=== PATIENT | male | born 1975 | race Caucasian/White ===

== ENCOUNTER 2017-04-15 06:59 | Day surgery (SDC) | payer OTHER ==
--- NOTE | 2017-04-12 13:16 | HISTORY & PHYSICAL EXAMINATION ---
DATE OF ADMISSION: 04/15/2017 CHIEF COMPLAINT: Left shoulder pain. HISTORY OF PRESENT ILLNESS: The patient is a 41-year-old male that presents to the office today with left shoulder pain, states that the symptoms have been acute and nontraumatic that began about 2-3 weeks ago. He describes the pain as aching, burning and stabbing and occurs constantly. The patient had a previous rotator cuff repair in 2012. The patient had an MRI done that demonstrated a full thickness retear of the supraspinatus. The patient would like to schedule a left shoulder arthroscopy with revision of rotator cuff repair. PAST MEDICAL HISTORY: Significant for hypercholesterolemia, sleep apnea, anxiety, shortness of breath walking up stairs, osteoarthritis. PAST SURGICAL HISTORY: Cholecystectomy, left rotator cuff repair, right knee meniscectomy. SOCIAL HISTORY: Denies smoking or tobacco use. Denies IV or illegal drug use. He lives in a 2-story house. He is currently on disability. FAMILY HISTORY: Mom and dad had a history of heart attack. ALLERGIES: SIMVASTATIN. His allergy is rhabdomyolysis. MEDICATIONS: Vitamin B12 once a day, magnesium 200 mg 2 tablets once a day, vitamin C 500 mg once a day, melatonin 5 mg 1 tablet at bedtime, amitriptyline 50 mg 1 capsule once a day, Neurontin 600 mg 1 tablet 3 times a day, fluticasone, cyclobenzaprine 10 mg 1 tablet 2 times a day, rosuvastatin 10 mg 1 tablet once a day, multivitamin, fish oil twice a day. REVIEW OF SYSTEMS: She denies headaches, fevers, chills, double vision, blurry vision, sore throat, cough, chest pain, nausea, vomiting, diarrhea, constipation, numbness, tingling, tired, urinary difficulties, thoughts to harm himself or harm others or depression. He is positive for joint pain and joint stiffness of the left shoulder. OBJECTIVE: GENERAL APPEARANCE: The patient is a 41-year-old male who is sitting in no acute distress. He is well dressed, well nourished. He is awake, alert and oriented x3. VITAL SIGNS: He is 5 feet 10 inches tall, 380 pounds, blood pressure 144/84. HEAD, EYES, EARS, NOSE, AND THROAT: Normocephalic, atraumatic. Extraocular movements are intact. PERRLA. Mucosa was moist. No septal deviation. NECK: Supple, no lymphadenopathy, no JVD, no thyromegaly. HEART: Regular rate and rhythm. No murmurs or gallops. LUNGS: Clear to auscultation. No wheezing or rhonchi. ABDOMEN: Soft, nontender, nondistended. Normal bowel sounds, no hepatosplenomegaly. EXTREMITIES: Paying particular attention to the left upper extremity, he is able to actively flex to 90 degrees, abduct to 90 degrees, externally rotate to 50 degrees. He has a positive empty can test. He has diffuse strength of the left shoulder. IMAGING: MRI of the left shoulder demonstrated a full thickness retear of the supraspinatus which is retracted 2.3 cm. IMPRESSION: Left shoulder rotator cuff retear. PLAN: The patient is scheduled for a left shoulder arthroscopy with revision of rotator cuff repair. The patient has tried nonsteroidal anti-inflammatories with minimal relief. MRI demonstrated a retear of the supraspinatus. The patient would like to proceed with a left shoulder arthroscopy with revision of rotator cuff repair. Risks and benefits to surgery were discussed and included but not limited to infection, DVT, pain, stiffness, need for revision surgery, failure to relieve all symptoms, retear, damage to blood vessels, damage to nerves, and risks of anesthesia were all discussed with the patient and he wishes to proceed. All questions were answered to his satisfaction. No DVT prophylaxis needed. He will be discharged home with self-care. DENNIS
--- NOTE | 2017-04-12 14:32 | PAT Medication Instructions ---
Service Date Apr 12, 2017. Current Home Medication List Ascorbic Acid (Ascorbic Acid), 500 MG PO QAM Cholecalciferol (D3), 5,000 INT-UNIT PO QAM Cyanocobalamin (Vitamin B-12), 1,000 MCG PO QAM Cyclobenzaprine Hcl (Flexeril), 10 MG PO BID Fish Oil ([place]-3), 1 CAP PO BID Fluticasone Propionate (Nasal) (Flonase Allergy Relief), 2 SPRAYS SHAHRIAR QAM Gabapentin (Neurontin), 600 MG PO TID Magnesium Oxide (Mg Supplement (Magox 400), 1 TABLET PO QAM Melatonin (Melatonin Maximum Strengt), 1 TAB PO HS Multiple Vitamin (Multivitamin), 1 TAB PO QAM Nortriptyline (Pamelor), 50 MG PO HS Rosuvastatin Calcium (Crestor), 10 MG PO HS Venlafaxine Hcl (Effexor), 2 TABLETS PO BID Medication Instructions For Your Scheduled Surgery - Hold the following medications as of 04/12/17: Fish Oil ([place]-3), 1 CAP PO BID - Hold the following medications the morning of surgery: Multiple Vitamin (Multivitamin), 1 TAB PO QAM Ascorbic Acid (Ascorbic Acid), 500 MG PO QAM Cholecalciferol (D3), 5,000 INT-UNIT PO QAM Cyanocobalamin (Vitamin B-12), 1,000 MCG PO QAM Magnesium Oxide (Mg Supplement (Magox 400), 1 TABLET PO QAM Cyclobenzaprine Hcl (Flexeril), 10 MG PO BID - Take the following medications the morning of surgery with a sip of water OTHERWISE NOTHING TO EAT OR DRINK AFTER MIDNIGHT: Gabapentin (Neurontin), 600 MG PO TID Venlafaxine Hcl (Effexor), 2 TABLETS PO BID Fluticasone Propionate (Nasal) (Flonase Allergy Relief), 2 SPRAYS SHAHRIAR QAM - Take the following medications as scheduled the night before surgery: Melatonin (Melatonin Maximum Strengt), 1 TAB PO HS Nortriptyline (Pamelor), 50 MG PO HS Rosuvastatin Calcium (Crestor), 10 MG PO HS Gabapentin (Neurontin), 600 MG PO TID Venlafaxine Hcl (Effexor), 2 TABLETS PO BID Cyclobenzaprine Hcl (Flexeril), 10 MG PO BID If you have any questions please call us at [phone] or [phone] or [phone]
--- NOTE | 2017-04-12 15:31 | DIAGNOSTIC IMAGING REPORT ---
CHEST 2 VIEWS ROUTINE CLINICAL HISTORY: Preoperative chest COMPARISON STUDY: 09/13/2013 FINDINGS: The heart is mildly enlarged. There is no failure. There is no focal pulmonary consolidation. There are no pleural effusions.[ IMPRESSION: No active disease in the chest. Electronically signed by: Leon Mayberry M.D. 04/12/2017 3:30 PM Dictated Date/Time: 04/12/2017 3:29 PM
[2017-04-12 15:35] LABS: BASO % 0.4 %; BASO ABS # 0.03 K/uL (0-0.2); COMPLETE YES; EOS % 1.9 %; HEMATOCRIT 41.4 % (42-52); IG% 0.2 %; LYMPH % 27.4 %; LYMPH ABS # 2.32 K/uL (1.2-3.4); MEAN CELL VOLUME 82.6 fL (80-100); MEAN CORPUSCULAR HEMOGLOBIN 28.7 pg (25-34); MEAN CORPUSCULAR HGB CONC 34.8 g/dl (32-36); MEAN PLATELET VOLUME 10.2 fL (7.4-10.4); MONO % 4.3 %; NEUT % 65.8 %; PLATELET COUNT 232 K/uL (130-400); RED BLOOD COUNT 5.01 M/uL (4.7-6.1); WHITE BLOOD COUNT 8.47 K/uL (4.8-10.8)
[2017-04-12 15:35] LABS: URINE APPEARANCE CLEAR (CLEAR); URINE BILIRUBIN NEG (NEG); URINE COLOR YELLOW; URINE NITRITE NEG (NEG); URINE PH 5.5 (4.5-7.5); URINE SPECIFIC GRAVITY 1.033 (1.000-1.030); UROBILINOGEN NEG (NEG)
[2017-04-12 15:38] LABS: MANUAL MICROSCOPIC REQUIRED? NO; REVIEW REQ? NO
[2017-04-12 15:54] LABS: PARTIAL THROMBOPLASTIN RATIO 1.1; PROTHROMBIN TIME (PATIENT) 10.4 SECONDS (9.0-12.0)
[2017-04-12 16:20] LABS: BLOOD UREA NITROGEN 16 mg/dl (7-18); BUN/CREATININE RATIO 14.2 (10-20); CALCIUM 8.9 mg/dl (8.5-10.1); CARBON DIOXIDE 28 mmol/L (21-32); CHLORIDE 109 mmol/L (98-107); GLUCOSE 186 mg/dl (70-99); POTASSIUM 4.4 mmol/L (3.5-5.1); SODIUM 144 mmol/L (136-145)
[2017-04-13 09:50] VITALS: Ht 177.8 cm; Wt 180.0 kg
[~2017-04-15] VITALS: Ht 177.8 cm; Wt 180.0 kg
[~2017-04-15 06:59] MED LIST: ASCO500T16 PO; CEFAZOLIN 3000 MG/65 ML D5W IV SCH; CHOL1TAB18 PO; CRS/10 PO; CYAN10005 PO; CYCL10TA6 PO; FLUT0.15 NAE; GABA-113 PO; LACTATED RINGER'S 1000ML 1,000 ML IV SCH; MAGN10TA PO; MELATAB2 PO; MULTTAB58 PO; NORT50CA PO; OMEG10007 PO; VENL75TA4 PO
--- NOTE | 2017-04-15 07:15 | History & Physical Bridge Note ---
H&P Re-Evaluation Bridge Note: I have examined the patient, reviewed the History & Physical and in the interval since the performance of the History & Physical I have noted the following changes of clinical significance: No changes noted
[2017-04-15] MEDS ORDERED: FENTANYL CITRATE INJ 50 MCG/1 ML 2 ML VIAL IV PRN (07:30)
[2017-04-15] MEDS ORDERED: ONDANSETRON INJ 2 MG/ML 2 ML VIAL IV PRN ×2 (07:30→11:45)
[2017-04-15] MEDS ORDERED: EpHEDrine SULFATE INJ 50 MG/ML AMP IV PRN (07:30)
[2017-04-15] MEDS ORDERED: ATROPINE SULFATE 0.1 MG/ML 5ML SYR IV PRN (07:30)
[2017-04-15] MEDS ORDERED: HYDROmorphone INJ 1 MG/ML SYR IV PRN (07:30)
[2017-04-15] MEDS ORDERED: PROMETHAZINE HCL INJ 12.5 MG in SODIUM CHLORIDE 0.9% 50ML 50 ML IV PRN (07:30)
[2017-04-15] MEDS ORDERED: ROPIVACAINE 0.5% 5 MG/ML 30 ML VIAL ONE (07:36)
[2017-04-15] MEDS ORDERED: MIDAZOLAM HCL 1 MG/ML 2ML VIAL ONE (07:54)
[2017-04-15] MEDS ORDERED: FENTANYL CITRATE INJ 50 MCG/1 ML 2 ML VIAL ONE (07:54)
[2017-04-15 08:14] VITALS: BP 152/84; PULSE 83; TEMP 36.7; O2SAT 96
[2017-04-15] MEDS ORDERED: BUPIVACAINE 0.5 % 5 MG/1 ML MPF 30ML VIAL ONE (08:56)
[2017-04-15] MEDS ORDERED: LIDOCAINE/EPINEPHRINE 1% 20 ML VIAL ONE (08:56)
[2017-04-15] MEDS ORDERED: EpINEphrine HCL INJ 1 MG/ML 5ML SYRINGE ONE (08:56)
[2017-04-15] MEDS ORDERED: LIDOCAINE HCL 2% 2 ML VIAL (20MG/ML) ONE (10:36)
[2017-04-15] MEDS ORDERED: ONDANSETRON INJ 2 MG/ML 2 ML VIAL ONE (10:36)
[2017-04-15] MEDS ORDERED: ROCURONIUM BROMIDE 10 MG/ML 5 ML VIAL ONE (10:36)
[2017-04-15] MEDS ORDERED: NEOSTIGMINE METHYLSULFATE 5 MG/5 ML SYR ONE (10:36)
[2017-04-15] MEDS ORDERED: PROPOFOL IV EMULSION 10 MG/ML 20 ML VIAL IV ONE (10:36)
[2017-04-15] MEDS ORDERED: GLYCOPYRROLATE INJ 0.2 MG/ML VIAL ONE (10:36)
[2017-04-15] MEDS ORDERED: ALBUTEROL HFA INHALER 8.5 GM INH ONE (11:44)
[2017-04-15] MEDS ORDERED: OXYC-57 PO (11:45)
[2017-04-15] MEDS ORDERED: ACETAMINOPHEN 325 MG TAB PO PRN (11:45)
[2017-04-15] MEDS ORDERED: OXYCODONE/ACETAMINOPHEN 5-325 TAB PO PRN ×2 (11:45)
--- NOTE | 2017-04-15 11:48 | Discharge Instructions ---
Discharge Instructions Date of Service Apr 15, 2017. Admission Reason for Admission: Left Shoulder Rotator Cuff Tear Discharge Discharge Diagnosis / Problem: S/P Left shoulder revision Rotator cuff repair Discharge Goals Goal(s): Decrease discomfort, Improve function Activity Recommendations Activity Limitations: per Instructions/Follow-up section . Instructions / Follow-Up Instructions / Follow-Up U DISCHARGE INSTRUCTIONS: ROTATOR CUFF REPAIR SELF CARE INSTRUCTIONS A. You are permitted to loosen your sling/immobilizer to move your elbow, wrist , and hand to prevent stiffness. You should use your well arm (good arm) to assist the operated extremity when trying to raise the arm away from the body, hygiene purposes. Do NOT actively try to use/engage your shoulder muscles in operative arm at this time. You should NOT do overhead activity, lifting, or attempt to reach behind your back. B. NO PHYSICAL THERAPY FOR 6 WEEKS. C. At 48 hours post-operatively, you may change your dressing. (Leave white steri-strips intact if present). Use band-aids and change daily. You are allowed to shower at this time and get the incision area wet, but DO NOT soak or submerge incision area in water. (No baths, swimming pools, hot tubs) D. Do NOT apply soap or any ointment/lotions directly over incision. E. You may use ice as needed to operative shoulder SPECIAL CARE INSTRUCTIONS: VERY IMPORTANT TO READ AND REVIEW A. There are a few signs you need to watch for after you are home. Call [facility] at [phone] if you experience any of the following: a. Increased severe shoulder pain. Some pain is expected especially when you exercise b. Increased swelling in your shoulder or arm; pain or swelling in either upper extremity. (Note: swelling and stiffness is normal and expected for several weeks post op, depending on type of shoulder surgery you had). c. Any fluid or drainage from the incision; redness of the incision. d. Shortness of breath or chest pain. B. Please call [facility] at [phone] if you have any questions or concerns about your operation or recovery. C. Call your physician if: a. Temperature is greater than 101 degrees (F). b. Pain is not relieved by prescribed pain medications. c. Increase drainage or redness from incision. d. Unanswered questions or concerns. D. Pain Medication: a. You will be prescribed pain medication upon discharge that should last till your first post-operative appointment. b. If you experience nausea and/or skin rash, discontinue this medication and contact our office for an alternative medication. c. Caution- narcotic pain medication can cause constipation. FOLLOW UP VISIT: Please call [facility] at [phone] to schedule a follow up appointment 10-14 days from your surgery date. Current Hospital Diet Patient's current hospital diet: Regular Diet Discharge Diet Recommended Diet: Regular Diet Procedures Procedures Performed: Left Shoulder Arthroscopy Revision Rotator Cuff Repair Pending Studies Studies pending at discharge: no Medical Emergencies . Who to Call and When: Medical Emergencies: If at any time you feel your situation is an emergency, please call 911 immediately. . Non-Emergent Contact Non-Emergency issues call your: Surgeon Call Non-Emergent contact if: temperature is above 101, your pain is worsening , wound has increased drainage, wound has increased redness . "Provider Documentation" section prepared by Servando Short. . VTE Core Measure Inpt VTE Proph given/why not?: Treatment not indicated [place] Drug Monitoring Program Search Results: patient reviewed within database, no issues identified
--- NOTE | 2017-04-15 12:44 | Anesthesiology Progress Note ---
Anesthesia Post Op Note Date & Time Apr 15, 2017 at 12:44 Vital Signs Pain Intensity: 1 Vital Signs Past 12 Hours Date Time Temp Pulse Resp B/P (MAP) Pulse Ox O2 Delivery O2 Flow Rate FiO2 04/15/17 12:13 87 16 95 04/15/17 12:13 36.4 86 16 04/15/17 12:11 128/91 04/15/17 12:08 87 21 99 04/15/17 12:08 87 21 04/15/17 12:07 134/81 04/15/17 12:03 83 20 100 04/15/17 12:03 83 20 04/15/17 12:01 149/90 04/15/17 11:58 77 22 04/15/17 11:58 77 22 99 04/15/17 11:57 127/87 04/15/17 11:53 77 22 100 04/15/17 11:53 78 22 04/15/17 11:52 145/81 04/15/17 11:48 74 22 04/15/17 11:48 74 22 100 04/15/17 11:47 148/85 04/15/17 11:43 75 21 04/15/17 11:43 76 21 97 04/15/17 11:42 150/82 04/15/17 11:38 36.4 75 14 150/82 98 Mask 10 04/15/17 08:14 36.7 83 20 152/84 (106) 96 Room Air Notes Mental Status: alert / awake / arousable, participated in evaluation Pt Amnestic to Procedure: Yes Nausea / Vomiting: adequately controlled Pain: adequately controlled Airway Patency, RR, SpO2: stable & adequate BP & HR: stable & adequate Hydration State: stable & adequate Anesthetic Complications: no major complications apparent Doing well. VSS. No c/o pain.
[2017-04-15 12:50] VITALS: BP 138/77; PULSE 86; TEMP 36.7; O2SAT 94
[2017-04-15 13:20] VITALS: BP 149/79; PULSE 89; TEMP 36.6; O2SAT 95
--- NOTE | 2017-04-15 17:36 | [facility] Operative Report ---
Operative Report Operative Date Apr 15, 2017. Pre-Operative Diagnosis Left Shoulder Rotator Cuff Retear, labral tear, synovitis Post-Operative Diagnosis Left Shoulder Rotator Cuff Retear, labral tear, synovitis Procedure(s) Performed Left Shoulder Arthroscopy Revision Rotator Cuff Repair, extensive debridement Surgeon Dr. Jose Luis Encarnacion Claims Vice President Surgeon(s) Servando Short PA-C Estimated Blood Loss 2 ML Findings As above Specimens none per surgeon Dr. Jose Luis Encarnacion Drains none Anesthesia Gen. and interscalene block Complication(s) None Disposition Recovery Room / PACU Indications 41-year-old male who previously had a full-thickness rotator cuff tear repaired arthroscopically. He had done well postoperatively. This was roughly 4 years ago. He began having increasing pain in the shoulder and an MRI demonstrated full-thickness retracted tear of the rotator cuff. He wishes to proceed with revision repair. Description of Procedure The MRI demonstrated a full-thickness rotator cuff tear. We discussed various treatment measures. The patient wished to proceed with arthroscopic repair. Risks, benefits and alternatives to surgery including, but not limited to, infection DVT, pain, stiffness, need for revision surgery, failure to relieve all symptoms, damage to blood vessels, damage to nerves, risk of anesthesia were discussed with the patient and they wished to proceed. The patient was identified. Laterality was confirmed and marked. The patient received a preoperative antibiotic as well as an interscalene block. They were transferred to the operating room and placed in the supine position and induced into general endotracheal anesthesia per the anesthesia staff. The patient was then safely transferred to the lateral decubitus position, secured by a beanbag. An axillary roll was placed. All pressure points were well-padded. The limb was placed in 10 pounds of lateral traction and then prepped and draped in the usual standard manner with ChloraPrep. The portal sites were anesthetized with 2% lidocaine with epinephrine. I made a standard posterior viewing portal made through a stab incision and then bluntly entered the glenohumeral joint. Then under spinal needle localization, I establish an anterior superolateral portal. The patient had a full-thickness rotator cuff tear through the supraspinatus extending into the infraspinatus. There was evidence of his previous cuff repair. The sutures appear to be intact and the tissue had torn sutures. They had a degenerative tear in the anterior, superior and posterior aspects of the glenoid labrum. This was debrided back to a stable base utilizing a shaver. Synovitic change in the anterior aspect of the joint was debrided utilizing a shaver. The cartilage of the humeral head and glenoid was relatively normal. The long head of the biceps was normal. The subscapularis was normal. I then removed the instrumentation from the joint and entered the subacromial space and established a lateral portal. There was a full-thickness rotator cuff tear that measured about 2 cm in diameter. I debrided out the previous suture material. I debrided the footprint with a shaver to establish a good bleeding response. Through a stab incision I placed a 4.5 mm HEALICOIL suture anchor. I passed the ultra braid sutures in a horizontal mattress with a fast passive scorpion. I repeated this process for a posterior medial anchor. I tied the ULTRABRAID sutures with sliding Memo knots reinforced for 3 half hitches on alternating posts. I then took 1 ULTRABRAID suture from each anchor I placed them in a 5.5 mm footprint anchor. I placed one anterolaterally. I then repeated this process another suture anchor posterolaterally, completing my double row construct. All instrumentation was then removed from the shoulder. Portal sites were closed with nylon. A sterile dressing was applied and a sling placed. All needle and sponge counts were correct at the end of the procedure. The patient was transferred to the PACU in stable condition without apparent complication. I attest to the content of the Intraoperative Record and any orders documented therein. Any exceptions are noted below.
== END 2017-04-15 13:33 | disposition home or self-care (01) ==
LOC: C.ACU 06:59
PROVIDERS: ATTEND Orthopaedic Surgery
DX: M75.102 Unspecified rotator cuff tear or rupture of left shoulder, not specified as traumatic (principal); M65.9 Synovitis and tenosynovitis, unspecified; E78.00 Pure hypercholesterolemia, unspecified; G47.30 Sleep apnea, unspecified; M19.90 Unspecified osteoarthritis, unspecified site; Z90.49 Acquired absence of other specified parts of digestive tract; Z82.49 Family history of ischemic heart disease and other diseases of the circulatory system

== ENCOUNTER → 2017-08-08 | Outpatient (CLI) | payer OTHER ==
[~2017-08-08] MED LIST changes: -CEFAZOLIN 3000 MG/65 ML D5W IV SCH; -LACTATED RINGER'S 1000ML 1,000 ML IV SCH
--- NOTE | 2017-08-08 10:57 | DIAGNOSTIC IMAGING REPORT ---
CHEST 2 VIEWS ROUTINE HISTORY: 41 years-old Male M75.121 PREOP preoperative exam. No acute chest complaints. COMPARISON: Chest radiograph 04/12/2017 TECHNIQUE: PA and lateral views of the chest FINDINGS: Cardiac silhouette is upper limits of normal. There is no pneumothorax, pleural effusion, focal airspace consolidation or overt pulmonary edema. The bones of the chest are grossly intact. Mild multilevel endplate spurring of the spine. There is mild convex right curvature of the midthoracic spine. IMPRESSION: No acute cardiopulmonary process. The above report was generated using voice recognition software. It may contain grammatical, syntax or spelling errors. Electronically signed by: Porter Melo M.D. 08/08/2017 10:56 AM Dictated Date/Time: 08/08/2017 10:55 AM
[2017-08-08 11:09] LABS: URINE APPEARANCE CLEAR (CLEAR); URINE BILIRUBIN NEG (NEG); URINE COLOR YELLOW; URINE NITRITE NEG (NEG); URINE PH 5.5 (4.5-7.5); URINE SPECIFIC GRAVITY 1.024 (1.000-1.030); UROBILINOGEN NEG (NEG)
[2017-08-08 11:10] LABS: BASO % 0.6 %; BASO ABS # 0.05 K/uL (0-0.2); COMPLETE YES; EOS % 2.7 %; HEMATOCRIT 43.5 % (42-52); IG% 0.2 %; LYMPH % 34.8 %; LYMPH ABS # 2.82 K/uL (1.2-3.4); MEAN CELL VOLUME 83.7 fL (80-100); MEAN CORPUSCULAR HEMOGLOBIN 28.5 pg (25-34); MEAN PLATELET VOLUME 9.9 fL (7.4-10.4); MONO % 6.5 %; NEUT % 55.2 %; PLATELET COUNT 247 K/uL (130-400)
[2017-08-08 11:12] LABS: MANUAL MICROSCOPIC REQUIRED? NO; REVIEW REQ? NO
[2017-08-08 11:28] LABS: PROTHROMBIN TIME (PATIENT) 10.3 SECONDS (9.0-12.0)
[2017-08-08 11:32] LABS: BLOOD UREA NITROGEN 14 mg/dl (7-18); BUN/CREATININE RATIO 13.7 (10-20); CARBON DIOXIDE 30 mmol/L (21-32); CHLORIDE 105 mmol/L (98-107); CREATININE 1.02 mg/dl (0.60-1.40); GLUCOSE 188 mg/dl (70-99); POTASSIUM 4.5 mmol/L (3.5-5.1); SODIUM 138 mmol/L (136-145)
== END | disposition home or self-care (01) ==
LOC: C.CPL 10:12
PROVIDERS: ATTEND Orthopaedic Surgery
DX: M75.121 Complete rotator cuff tear or rupture of right shoulder, not specified as traumatic (principal)

== ENCOUNTER 2017-08-25 05:38 | Day surgery (SDC) | payer OTHER ==
[2017-08-18 11:11] VITALS: BMI 57.0
--- NOTE | 2017-08-22 17:48 | History and Physical ---
History & Physical Date Aug 22, 2017. Chief Complaint Right shoulder pain History of Present Illness The patient is a 41 year old male with complaints of Right shoulder pain for some time now. He has tried conservative therapy with no relief. He is scheduled for a right shoulder SAD, RCR. Past Medical/Surgical History PMHx: Hypercholesterolemia, Sleep apnea, anxiety PSHx: cholecystectomy, colonoscopy, Left shoulder RCR x2, Right knee arthroscopy Additional History Hepatic Disease: No Endocrine Disorder: No Kidney Disease: No Hypertension: No Heart Disease: No Bleeding Tendencies: No Infectious Diseases: No Allergies Coded Allergies: Simvastatin (Verified Adverse Reaction, Intermediate, RHABDOMYOLYSIS, ) Home Medications Scheduled Ascorbic Acid (Ascorbic Acid), 500 MG PO QAM Cholecalciferol (D3), 5,000 INT-UNIT PO QAM Cyanocobalamin (Vitamin B-12), 1,000 MCG PO QAM Cyclobenzaprine Hcl (Flexeril), 10 MG PO BID Fish Oil ([place]-3), 1 CAP PO BID Fluticasone Propionate (Nasal) (Flonase Allergy Relief), 2 SPRAYS SHAHRIAR QAM Gabapentin (Neurontin), 600 MG PO TID Magnesium Oxide (Mg Supplement (Magox 400), 1 TABLET PO QAM Melatonin (Melatonin Maximum Strengt), 1 TAB PO HS Multiple Vitamin (Multivitamin), 1 TAB PO QAM Nortriptyline (Pamelor), 50 MG PO HS Rosuvastatin Calcium (Crestor), 10 MG PO HS Venlafaxine Hcl (Effexor Extended Rel), 150 MG PO BID Physical Examination Skin: warm/dry, no rash Eyes: normal inspection, EOMI ENT: normal ENT inspection Head: normocephalic, atraumatic Neck: supple, no adenopathy Respiratory/Chest: lungs clear, normal breath sounds Cardiovascular: regular rate, rhythm Abdomen / GI: normal bowel sounds, non tender Extremities: normal inspection, + pertinent finding (decreased ROM and strength (+) empty can test) Neurologic/Psych: no motor/sensory deficits, alert, oriented x 3 Diagnosis Right shoulder rotator cuff tear Plan of Treatment Patient is scheduled for a right shoulder rotator cuff repair and SAD. Patient has underwent conservative therapy with no relief. He would like to proceed with scheduled surgery. Risks and benefits to surgery were discussed. He understands these risks and wishes to proceed.
[2017-08-25] VITALS (7 sets, daily range): BP systolic 162–181; BP diastolic 81–101; PULSE 81–100; TEMP 36.7–36.9; O2SAT 92–96; Ht 177.8 cm; Wt 180.0 kg
[~2017-08-25] VITALS: Ht 177.8 cm; Wt 180.0 kg
[~2017-08-25 05:38] MED LIST changes: +VENL150C56 PO; -VENL75TA4 PO
[2017-08-25] MEDS ORDERED: LACTATED RINGER'S 1000ML 1,000 ML IV SCH ×2 (06:00)
[2017-08-25] MEDS ORDERED: CEFAZOLIN 3000MG IV PUSH 15 ML IV SCH (06:00)
[2017-08-25] MEDS ORDERED: ROPIVACAINE 0.5% 5 MG/ML 30 ML VIAL ONE (06:33)
[2017-08-25] MEDS ORDERED: MIDAZOLAM HCL 1 MG/ML 2ML VIAL ONE (06:57)
[2017-08-25] MEDS ORDERED: FENTANYL CITRATE INJ 50 MCG/1 ML 2 ML VIAL ONE (06:57)
[2017-08-25] MEDS ORDERED: LIDOCAINE/EPINEPHRINE 1% 20 ML VIAL ONE (07:12)
[2017-08-25] MEDS ORDERED: EpINEphrine HCL INJ 1 MG/ML 1ML SYRINGE ONE (07:13)
[2017-08-25] MEDS ORDERED: BUPIVACAINE 0.5 % 5 MG/1 ML MPF 30ML VIAL ONE (07:13)
[2017-08-25] MEDS ORDERED: ATROPINE SULFATE 0.1 MG/ML 5ML SYR IV PRN (08:15)
[2017-08-25] MEDS ORDERED: ONDANSETRON INJ 2 MG/ML 2 ML VIAL IV PRN ×2 (08:15→09:45)
[2017-08-25] MEDS ORDERED: EpHEDrine SULFATE INJ 50 MG/ML AMP IV PRN (08:15)
[2017-08-25] MEDS ORDERED: FENTANYL CITRATE INJ 50 MCG/1 ML 2 ML VIAL IV PRN (08:15)
[2017-08-25] MEDS ORDERED: ALBUTEROL HFA INHALER 8.5 GM INH ONE (08:17)
[2017-08-25] MEDS ORDERED: LIDOCAINE HCL 2% 2 ML VIAL (20MG/ML) ONE (08:17)
[2017-08-25] MEDS ORDERED: PROPOFOL IV EMULSION 10 MG/ML 20 ML VIAL IV ONE (08:17)
[2017-08-25] MEDS ORDERED: DEXAMETHASONE SOD INJ 4 MG/ML VIAL ONE (08:17)
[2017-08-25] MEDS ORDERED: ONDANSETRON INJ 2 MG/ML 2 ML VIAL ONE (08:17)
[2017-08-25] MEDS ORDERED: NEOSTIGMINE METHYLSULFATE 5 MG/5 ML SYR ONE (08:18)
[2017-08-25] MEDS ORDERED: GLYCOPYRROLATE INJ 0.2 MG/ML VIAL ONE (08:18)
[2017-08-25] MEDS ORDERED: ROCURONIUM BROMIDE 10 MG/ML 5 ML VIAL IV ONE (08:42)
[2017-08-25] MEDS ORDERED: OXYC-57 PO (09:37)
--- NOTE | 2017-08-25 09:41 | Discharge Instructions ---
Discharge Instructions Date of Service Aug 25, 2017. Admission Reason for Admission: Right Shoulder Osteoarthritis, Complete Rtc Tear/R Discharge Discharge Diagnosis / Problem: S/P right shoulder RCR, SAD, debridement Discharge Goals Goal(s): Decrease discomfort, Improve function Activity Recommendations Activity Limitations: per Instructions/Follow-up section . Instructions / Follow-Up Instructions / Follow-Up [facility] DISCHARGE INSTRUCTIONS: ROTATOR CUFF REPAIR SELF CARE INSTRUCTIONS A. You are permitted to loosen your sling/immobilizer to move your elbow, wrist , and hand to prevent stiffness. You should use your well arm (good arm) to assist the operated extremity when trying to raise the arm away from the body, hygiene purposes. Do NOT actively try to use/engage your shoulder muscles in operative arm at this time. You should NOT do overhead activity, lifting, or attempt to reach behind your back. B. You will start Physical Therapy upon discharge. You will be provided a prescription for therapy with specific restrictions, if needed, at time of discharge. C. At 48 hours post-operatively, you may change your dressing. Use band-aids and change daily. You are allowed to shower at this time and get the incision area wet, but DO NOT soak or submerge incision area in water. (No baths, swimming pools, hot tubs) D. Do NOT apply soap or any ointment/lotions directly over incision. E. You may use ice as needed to operative shoulder SPECIAL CARE INSTRUCTIONS: VERY IMPORTANT TO READ AND REVIEW A. There are a few signs you need to watch for after you are home. Call [facility] at [phone] if you experience any of the following: a. Increased severe shoulder pain. Some pain is expected especially when you exercise b. Increased swelling in your shoulder or arm; pain or swelling in either upper extremity. (Note: swelling and stiffness is normal and expected for several weeks post op, depending on type of shoulder surgery you had). c. Any fluid or drainage from the incision; redness of the incision. d. Shortness of breath or chest pain. B. Please call [facility] at [phone] if you have any questions or concerns about your operation or recovery. C. Call your physician if: a. Temperature is greater than 101 degrees (F). b. Pain is not relieved by prescribed pain medications. c. Increase drainage or redness from incision. d. Unanswered questions or concerns. D. Pain Medication: a. You will be prescribed pain medication upon discharge that should last till your first post-operative appointment. b. If you experience nausea and/or skin rash, discontinue this medication and contact our office for an alternative medication. c. Caution- narcotic pain medication can cause constipation. FOLLOW UP VISIT: Please call [facility] at [phone] to schedule a follow up appointment 10-14 days from your surgery date with Dr. Guy or his PA. Current Hospital Diet Patient's current hospital diet: Regular Diet Discharge Diet Recommended Diet: Regular Diet Procedures Procedures Performed: Right Shoulder Arthroscopic Subacromial Decompression and Rotator Cuff Repair with Extensive Debridement Pending Studies Studies pending at discharge: no Medical Emergencies . Who to Call and When: Medical Emergencies: If at any time you feel your situation is an emergency, please call 911 immediately. . Non-Emergent Contact Non-Emergency issues call your: Surgeon Call Non-Emergent contact if: temperature is above 101.5, your pain is worsening, wound has increased drainage, wound has increased redness . "Provider Documentation" section prepared by Servando Short. . VTE Core Measure Inpt VTE Proph given/why not?: Treatment not indicated [place] Drug Monitoring Program Search Results: patient reviewed within database, no issues identified
[2017-08-25] MEDS ORDERED: ACETAMINOPHEN 325 MG TAB PO PRN (09:45)
[2017-08-25] MEDS ORDERED: OXYCODONE/ACETAMINOPHEN 5-325 TAB PO PRN ×2 (09:45)
--- NOTE | 2017-08-25 10:18 | Anesthesiology Progress Note ---
Anesthesia Post Op Note Date & Time Aug 25, 2017 at 10:16 Vital Signs Pain Intensity: 0 Vital Signs Past 12 Hours Date Time Temp Pulse Resp B/P (MAP) Pulse Ox O2 Delivery O2 Flow Rate FiO2 08/25/17 10:05 85 15 148/85 91 Nasal Cannula 2 08/25/17 09:55 87 20 137/78 98 Oxymask 10 08/25/17 09:45 91 12 135/77 96 Oxymask 13 08/25/17 09:35 36.2 91 12 141/91 98 Oxymask 13 08/25/17 06:10 36.8 81 20 162/101 (121) 96 Room Air Notes Mental Status: alert / awake / arousable, participated in evaluation Pt Amnestic to Procedure: Yes Nausea / Vomiting: adequately controlled Pain: adequately controlled Airway Patency, RR, SpO2: see Notes BP & HR: stable & adequate Hydration State: stable & adequate Anesthetic Complications: no major complications apparent Patient's pain very well controlled. No PONV. No anesthesia concerns. He is currently on 2L NC and will need to be weaned fully prior to being discharged today. He is awake and conversant and answering questions appropriately. He was also given an incentive spirometer and will continue to use in recovery and at home later today.
[2017-08-25] MEDS ORDERED: HydrALAZINE HCL 20 MG/ML VIAL ONE (11:21)
[2017-08-25] MEDS ORDERED: NURSING VERBAL MED ORDER ONE ×2 (11:30→11:45)
--- NOTE | 2017-08-25 18:23 | [facility] Operative Report ---
Operative Report Operative Date Aug 25, 2017. Pre-Operative Diagnosis Right shoulder rotator cuff tear, impingement, labral tear, synovitis Post-Operative Diagnosis Same Procedure(s) Performed Right Shoulder Arthroscopic Subacromial Decompression and Rotator Cuff Repair with Extensive Debridement Surgeon Dr. Encarnacion Pvc Monitor Surgeon(s) Servando Short PA-C Estimated Blood Loss 2ml Findings As above Specimens none per surgeon Drains none Anesthesia Gen. and interscalene block Complication(s) None Disposition Recovery Room / PACU Indications 41-year-old male developed pain in the right shoulder. MRI demonstrated a complete rupture of the rotator cuff. He wishes to proceed with arthroscopic repair. Description of Procedure The MRI demonstrated a full-thickness rotator cuff tear. We discussed various treatment measures. The patient wished to proceed with arthroscopic repair. Risks, benefits and alternatives to surgery including, but not limited to, infection DVT, pain, stiffness, need for revision surgery, failure to relieve all symptoms, damage to blood vessels, damage to nerves, risk of anesthesia were discussed with the patient and they wished to proceed. The patient was identified. Laterality was confirmed and marked. The patient received a preoperative antibiotic as well as an interscalene block. They were transferred to the operating room and placed in the supine position and induced into general endotracheal anesthesia per the anesthesia staff. The patient was then safely transferred to the lateral decubitus position, secured by a beanbag. An axillary roll was placed. All pressure points were well-padded. The limb was placed in 10 pounds of lateral traction and then prepped and draped in the usual standard manner with ChloraPrep. The portal sites were anesthetized with 2% lidocaine with epinephrine. I made a standard posterior viewing portal made through a stab incision and then bluntly entered the glenohumeral joint. Then under spinal needle localization, I establish an anterior superolateral portal. The patient had a full-thickness rotator cuff tear through the supraspinatus extending into the infraspinatus. They had a degenerative tear in the anterior, superior and posterior aspects of the glenoid labrum. This was debrided back to a stable base utilizing a shaver. Synovitic change in the anterior aspect of the joint was debrided utilizing a shaver. The cartilage of the humeral head and glenoid was relatively normal. The long head of the biceps was normal. The subscapularis was normal. I then removed the instrumentation from the joint and entered the subacromial space and established a lateral portal. There was a full-thickness rotator cuff tear that measured about 2 cm in diameter. I debrided the footprint with a shaver to establish a good bleeding response. Through a stab incision I placed a 5.5 mm HEALICOIL suture anchor. I passed the ultra braid sutures in a horizontal mattress with a fast passive scorpion. I then passed the ultra tape with a shuttling suture. I repeated this process for a posterior medial anchor. I tied the ULTRABRAID sutures with sliding Memo knots reinforced for 3 half hitches on alternating posts. I then took 1 ULTRABRAID suture from each anchor I placed them in a 5.5 mm Multifix S suture anchor. I placed one anterolaterally. I then repeated this process another suture anchor posterolaterally, completing my double row construct. I then released the CA ligament with cautery and performed a subacromial decompression, first removing the anterior inferior spur from laterally and then completing with a cutting block technique. All instrumentation was then removed from the shoulder. Portal sites were closed with nylon. A sterile dressing was applied and a sling placed. All needle and sponge counts were correct at the end of the procedure. The patient was transferred to the PACU in stable condition without apparent complication. I attest to the content of the Intraoperative Record and any orders documented therein. Any exceptions are noted below.
== END 2017-08-25 13:20 | disposition home or self-care (01) ==
LOC: C.ACU 05:38
PROVIDERS: ATTEND Orthopaedic Surgery
DX: M75.101 Unspecified rotator cuff tear or rupture of right shoulder, not specified as traumatic (principal); G47.33 Obstructive sleep apnea (adult) (pediatric); E66.01 Morbid (severe) obesity due to excess calories; E78.00 Pure hypercholesterolemia, unspecified